=== PATIENT | female | born 1940 | race Native Hawaiian/Other Pacific Islander ===

== ENCOUNTER 2016-11-19 07:05 | Day surgery (SDC) | payer OTHER ==
[2016-11-19 07:09] VITALS: BMI 24.6
[2016-11-19] MEDS ORDERED: Lidocaine 2% Inj (20ml) ONE ×2 (07:20→08:31)
[2016-11-19] MEDS ORDERED: Iodixanol 320 MG/ML 200 ML BOTTLE IV ONE (07:21)
[2016-11-19] MEDS ORDERED: Nitroglycerin 50mg in D5W 0 MG/0 ML BOTTLE IV ONE (07:21)
[2016-11-19] MEDS ORDERED: Phenylephrine 10 mg/ml Inj ONE (07:21)
[2016-11-19] MEDS ORDERED: Iohexol 350mgl/ml 50 ML ONE (07:21)
[2016-11-19] MEDS ORDERED: Iodixanol 320 MG/ML 100 ML BOTTLE IV ONE (07:21)
[2016-11-19] MEDS ORDERED: Midazolam 2 MG/2 ML VIAL ONE (07:25)
[2016-11-19] MEDS ORDERED: Oxycodone/Acetaminophen 5/325 mg Tab PO PRN (08:43)
[2016-11-19] MEDS ORDERED: Sodium Chloride 0.9% 1,000 ML IV SCH (08:45)
--- NOTE | 2016-11-19 11:02 | CARD ---
APPROVED REPORT EKG Measurement Heart [id number] KS 160P35 [id number] <Conclusion> Sinus bradycardia Minimal voltage criteria for LVH, may be normal variant T wave abnormality, consider lateral ischemia Abnormal ECG
--- NOTE | 2016-11-19 11:59 | CARDCATH ---
PROCEDURE DATE: 11/19/2016 PROCEDURE: Left anterior descending coronary artery, balloon angioplasty and drug-eluting stent hermila farfan. CLINICAL INDICATIONS: 1. Angina. 2. Coronary artery disease. 3. Hypertension. 4. Hyperlipidemia. 5. Abnormal stress test. REFERRING PHYSICIAN: . PERFORMING PHYSICIAN: Dr. Gianni Lee. PROCEDURE: After informed consent, patient was prepped and draped in the usual sterile fashion. 2% lidocaine was given in the left groin for local anesthesia. Using micropuncture technique, 6-Spanish sheath was introduced into left common femoral artery. The patient was preloaded with aspirin, Plavix and IV heparin. ACT maintained about 250. Left main was engaged using XB LAD 3.5 guided catheter. Initial angiogram has revealed calcific 90-95% proxima l stenosis of the left anterior descending coronary artery. There was a EVERETTE-2 flow noted distally. The left anterior descending coronary artery was threaded with run through coronary wire. The lesio n was predilated using 2.5 x 20 compliant balloon. Stented with 2.75 x 23 grams Alpine drug-eluting stent. Excellent final angiographic results with brisk EVERETTE-3 flow noted. Post-procedure the left g roin hemostasis achieved using a Perclose suture technique. CONCLUSION: Gianni Lee MD cc: [id number] TT: 11/19/2016 10:43:59 11/19/2016 10:58:29
== END 2016-11-19 13:51 | disposition short-term general hospital (02) ==
LOC: CATH 07:05 → 2RSO 08:56 → CATH 13:51
PROVIDERS: ATTEND Internal Medicine Cardiovascular Disease
DX: I25.119 Atherosclerotic heart disease of native coronary artery with unspecified angina pectoris (principal); I10 Essential (primary) hypertension; E78.5 Hyperlipidemia, unspecified
CPT/HCPCS: 85175; 93005; 99152; C1725; C1760; C1769 ×2; C1887; C1894; C9600; J1644 ×2; J2250; J3010; J7040 ×2; Q9967